=== PATIENT | female | born 1945 | race Caucasian/White ===

== ENCOUNTER → 2016-12-03 | Outpatient (CLI) | payer OTHER, MEDICARE | LOC: FIMAGING 13:49 | PROVIDERS: ATTEND Internal Medicine Nephrology | DX: N28.1 Cyst of kidney, acquired (principal); N18.3 Chronic kidney disease, stage 3 (moderate) ==

== ENCOUNTER → 2016-12-10 | Outpatient (CLI) | payer OTHER, MEDICARE | LOC: BHFA 10:45 | PROVIDERS: ATTEND Internal Medicine Cardiovascular Disease | DX: N28.9 Disorder of kidney and ureter, unspecified (principal) ==

== ENCOUNTER 2016-12-20 14:06 | Emergency (ER) | payer OTHER, MEDICARE ==
[2016-12-20 14:15] VITALS: TEMP 98.2
--- NOTE | 2016-12-20 14:48 | EDPHY ---
H & P Stated Complaint: R foot red/swollen, painful to walk on HPI/ROS: CHIEF COMPLAINT: Foot pain and swelling HISTORY OF PRESENT ILLNESS: Patient has several days duration of pain and swelling in the dorsum of the right midfoot. This was gradual onset. It has been constant duration. It is worsened over the past few days. It worsened after physical therapy and massage week. It may or may not of current after an injury going up her steps. She is not entirely sure. The warmth to the area has increased over the past 24-36 hours. She has no erythema beyond the dorsum of the foot. No edema or pain of the right calf. She has chronic knee pain, for which she is awaiting TKA later next month. She also has a history of chronic kidney disease, that she has not been on anti-inflammatories recently. She did take 1 last night after calling her blood bank calendar control clerk due to the pain and swelling. She did have some improvement with this. No other associated complaints or modifying factors. PRIOR ORTHO INJURIES: Osteoarthritis of the right knee ESTABLISHED ORTHOPEDIST: Dr. Salinas REVIEW OF SYSTEMS: Ten systems reviewed and are negative unless otherwise noted in the HPI EXAMINATION General Appearance: Alert, no distress Cardiovascular: Pulses normal throughout. Symmetric DP and PT pulses at 2+. Brisk cap refill Neurological: A&O, sensory symmetric, strength symmetric. Proprioception of the great toe is intact. Skin: Warm and dry, no rash. Mild erythema of the right foot over the dorsum. There is edema in this area. No erythema of the remainder of the extremity. No petechiae or purpura. Extremities: Edema and tenderness to palpation of the dorsal right midfoot. There is no crepitus. Range of motion of the ankle is intact but painful. She is neurovascular intact distal to this area of swelling. There is no bony tenderness of the ankle or ivey on the right lower extremity. There is no evidence of DVT by examination. Psychiatric: Mood and affect normal DIFFERENTIAL DIAGNOSES: Including but not limited to fracture, sprain, strain, cellulitis, osteomyelitis MDM: 2:40 p.m. Erythema, edema pain to the dorsum of the right midfoot. She is not sure if it is due to injury or physical therapy from this week. She has no erythema, edema or pain in the ipsilateral calf. No previous venous thrombolic event. Vital signs are stable. X-ray and laboratory studies are pending at this time. 3:30 p.m. No leukocytosis. There is mild elevation of inflammatory markers. Chemistry is pending. I have discussed the case with Dr. Tuttle, and he will evaluate the patient as well. 4:[address] Tuttle has evaluated the patient. He agrees that this is a mild cellulitis. Laboratory studies have been reviewed. X-rays unremarkable. The swelling does correlate with bone spurs on the x-ray. Plan for discharge home with oral antibiotics. Follow up with primary care physician. Return to the ER for recheck in 2 days if unable to see primary care physician. Return sooner for fever, worsening erythema, worsening swelling, worsening pain or involvement of the calf. Patient is comfortable with this plan. She will be discharged home in stable condition ED Precautions: Worsening pain. Erythema, edema, cyanosis, pallor, paresthesia or anesthesia. SUPERVISION: Patient was evaluated in conjunction with the supervising physician. Please see their note for details. Source: Patient, Family Exam Limitations: No limitations - Personal History Current Tetanus/Diphtheria Vaccine: Unsure Current Tetanus Diphtheria and Acellular Pertussis (TDAP): Unsure - Medical/Surgical History Hx Asthma: No Hx Chronic Respiratory Disease: No Hx Diabetes: No Hx Cardiac Disease: No Hx Renal Disease: No Hx Cirrhosis: No Hx Alcoholism: No Hx HIV/AIDS: No Hx Splenectomy or Spleen Trauma: No Other PMH: x2, bladder surgery, arthritis - Social History Smoking Status: Never smoked Constitutional: Initial Vital Signs Temperature (C) 98.2 F 12/20/16 14:13 Heart Rate 76 12/20/16 14:13 Respiratory Rate 15 12/20/16 14:13 Blood Pressure 164/83 H 12/20/16 14:13 O2 Sat (%) 96 12/20/16 14:13 O2 Delivery Mode Room Air Allergies/Adverse Reactions: amoxicillin trihydrate [From Augmentin] Allergy (Verified 12/20/16 14:12) erythromycin base [Erythromycin Base] Allergy (Verified 12/20/16 14:12) potassium clavulanate [From Augmentin] Allergy (Verified 12/20/16 14:12) Home Medications: Medication Instructions Recorded Ranitidine HCl [Zantac] 15 mg PO 10/08/12 Cephalexin [Keflex (*)] 500 mg PO TID #30 cap 12/20/16 Sulfamethox/Tmp 800/160 mg 1 tab PO BID 10 Days 12/20/16 [Bactrim Ds] Xanax 12/20/16 Medical Decision Making - Diagnostics Imaging Results: Imaging Impressions Foot X-Ray 12/20/16 14:35 Impression: Dorsal foot soft tissue swelling with underlying spurs. No evidence for underlying osteomyelitis. - Data Points Laboratory Results: Laboratory Results 12/20/16 15:00 12/20/16 15:00 12/20/16 12/20/16 15:00 15:00 WBC 8.29 10^3/uL 10^3/uL (3.80-9.50) RBC 3.59 10^6/uL L 10^6/uL (4.18-5.33) Hgb 10.7 g/dL L g/dL (12.6-16.3) Hct 33.6 % L % (38.0-47.0) MCV 93.6 fL fL (81.5-99.8) MCH 29.8 pg pg (27.9-34.1) MCHC 31.8 g/dL L g/dL (32.4-36.7) RDW 12.7 % % (11.5-15.2) Plt Count 188 10^3/uL 10^3/uL (150-400) MPV 10.7 fL fL (8.7-11.7) Neut % (Auto) 71.0 % % (39.3-74.2) Lymph % (Auto) 15.7 % % (15.0-45.0) [place] % (Auto) 11.5 % % (4.5-13.0) Eos % (Auto) 1.2 % % (0.6-7.6) Baso % (Auto) 0.4 % % (0.3-1.7) Nucleat RBC Rel Count 0.0 % % (0.0-0.2) Absolute Neuts (auto) 5.89 10^3/uL 10^3/uL (1.70-6.50) Absolute Lymphs (auto) 1.30 10^3/uL 10^3/uL (1.00-3.00) Absolute Monos (auto) 0.95 10^3/uL H 10^3/uL (0.30-0.80) Absolute Eos (auto) 0.10 10^3/uL 10^3/uL (0.03-0.40) Absolute Basos (auto) 0.03 10^3/uL 10^3/uL (0.02-0.10) Absolute Nucleated RBC 0.00 10^3/uL 10^3/uL (0-0.01) Immature Gran % 0.2 % % (0.0-1.1) Immature Gran # 0.02 10^3/uL 10^3/uL (0.00-0.10) ESR 12 MM/HR MM/HR (0-30) Sodium 144 mEq/L mEq/L (134-144) Potassium 4.5 mEq/L mEq/L (3.5-5.2) Chloride 111 mEq/L H mEq/L (97-110) Carbon Dioxide 23 mEq/l mEq/l (22-31) Anion Gap 10 mEq/L mEq/L (8-16) BUN 28 mg/dL H mg/dL (7-23) Creatinine 1.3 mg/dL H mg/dL (0.6-1.0) Estimated GFR 40 Glucose 99 mg/dL mg/dL (70-100) Calcium 10.5 mg/dL H mg/dL (8.5-10.4) C-Reactive Protein 18.9 mg/L H mg/L (<10.0) Departure - Departure Disposition: Home, Routine, Self-Care Clinical Impression: Cellulitis of foot without toes CKD (chronic kidney disease) Qualifiers: Chronic kidney disease stage: stage 1 Qualified Code(s): N18.1 - Chronic kidney disease, stage 1 Condition: Good Instructions: Cellulitis (ED) Additional Instructions: Bactrim and Keflex as discussed. Continued ice and elevate the foot. Follow up with primary care physician and blood bank calendar control clerk. Return to the ER in 2 days if unable to see primary care physician. Return sooner for worsening symptoms, fever, increasing erythema of the extremity. Referrals: Shruthi Xiong [Primary Care Provider] - As per Instructions Jesse Rojas MD [[facility] Primary Care Provider] - As per Instructions Prescriptions: Cephalexin [Keflex (*)] 500 mg PO TID #30 cap Sulfamethox/Tmp 800/160 mg [Bactrim Ds] 1 tab PO BID 10 Days
[2016-12-20 15:13] LABS: % IMMATURE GRANULYOCYTES 0.2 % (0.0-1.1); ABSOLUTE IMMATURE GRANULOCYTES 0.02 10^3/uL (0.00-0.10); ADD DIFF? NO; ADD MORPH? NO; ADD SCAN? NO; ATYPICAL LYMPHOCYTE FLAG 10 (0-99); FRAGMENT RBC FLAG 0 (0-99); HEMATOCRIT 33.6 % (38.0-47.0); HEMOGLOBIN 10.7 g/dL (12.6-16.3); LEFT SHIFT FLG 0 (0-99); LIPEMIA HEMOLYSIS FLAG 80 (0-99); MEAN CELL HEMOGLOBIN 29.8 pg (27.9-34.1); MEAN CELL HEMOGLOBIN CONCENTR. 31.8 g/dL (32.4-36.7); MEAN CELL VOLUME 93.6 fL (81.5-99.8); MEAN PLATELET VOLUME 10.7 fL (8.7-11.7); PLATELET CLUMPS FLAG 0 (0-99); PLATELET COUNT 188 10^3/uL (150-400); RED BLOOD CELL COUNT 3.59 10^6/uL (4.18-5.33); RED CELL DISTRIBUTION WIDTH 12.7 % (11.5-15.2)
[2016-12-20 15:38] LABS: SEDIMENTATION RATE 12 MM/HR (0-30)
[2016-12-20 15:39] LABS: ANION GAP 10 mEq/L (8-16); C-REACTIVE PROTEIN 18.9 mg/L (<10.0); CALCIUM 10.5 mg/dL (8.5-10.4); CARBON DIOXIDE 23 mEq/l (22-31); CHLORIDE 111 mEq/L (97-110); CREATININE 1.3 mg/dL (0.6-1.0); GLOMERULAR FILTRATION RATE 40; GLUCOSE 99 mg/dL (70-100); POTASSIUM 4.5 mEq/L (3.5-5.2); SODIUM 144 mEq/L (134-144)
[2016-12-20 16:36] VITALS: BP 142/107; PULSE 76; RESP 14; O2SAT 94
== END 2016-12-20 16:37 | disposition home or self-care (01) ==
DX: L03.115 Cellulitis of right lower limb (principal); N18.1 Chronic kidney disease, stage 1

== ENCOUNTER 2017-01-22 13:41 | Emergency (ER) | payer OTHER, MEDICARE ==
[2017-01-22 13:55] VITALS: TEMP 99.3
--- NOTE | 2017-01-22 14:45 | EDPHY ---
H & P Stated Complaint: pt. states 2 nocs ago stepped off curb, rt ft red,swelling, and pain Time Seen by Provider: 01/22/17 14:13 HPI/ROS: Chief Complaint: Right foot pain and redness HPI: 8-year-old woman presenting with 2 days of increasing right foot pain and redness. Patient states that began several hours after she stepped down off of a curb. She was seen by orthopedics yesterday for evaluation of her knee but had an x-ray at that time which was read as negative. Today patient has had some worsening pain and some redness in her midfoot. She had a similar episode in November was diagnosed with cellulitis. Patient took antibiotics for several days and improved. Of note patient does have a history of renal disease which has been attributed to NSAID use. 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 Does not have a history of recurrent joint pain in the past. Has had some redness. No fevers or chills. No redness streaking up her foot. No nausea or vomiting. Patient did take some tramadol but is highly intolerant of multiple medications. She is unable to take NSAIDs given her chronic renal disease. ROS: 10 point Review of Systems is negative except as noted in the HPI. PMH: Chronic kidney disease Social History: [No] smoking, [no] alcohol, [ no recreational drug use] Family History: [non-contributory] Physical Exam: General: Awake, alert, no acute distress Right foot: She has significant tenderness in the midfoot with palpation both dorsally and from the plantar aspect. She has no bony deformity. There is a very small amount of very light erythema on the dorsum of her 4th. There is significant tenderness medially over the midfoot with a is no erythema. It is mildly warm to the touch. There is no lymphadenitis or streaking. She has decreased range of motion foot secondary to pain. She has 2+ DP and PT pulses. Capillary refills less than 3 seconds. Sensations intact in all nerve distribution. Skin: Per foot exam - Medical/Surgical History Hx Asthma: No Hx Chronic Respiratory Disease: No Hx Diabetes: No Hx Cardiac Disease: No Hx Renal Disease: Yes Hx Cirrhosis: No Hx Alcoholism: No Hx HIV/AIDS: No Hx Splenectomy or Spleen Trauma: No Other PMH: Med hx-heart arrythmia,arthritis,echo cardiagram-11/2016-wnml,kidney disease-stage 3?,kidney stones. [id number],bladder surg - Social History Smoking Status: Never smoked Constitutional: Initial Vital Signs Temperature (C) 37.4 C 01/22/17 13:48 Heart Rate 93 01/22/17 13:48 Respiratory Rate 16 01/22/17 13:48 Blood Pressure 159/88 H 01/22/17 13:48 O2 Sat (%) 95 01/22/17 13:48 O2 Delivery Mode Room Air Allergies/Adverse Reactions: amoxicillin trihydrate [From Augmentin] Allergy (Verified 01/22/17 13:46) erythromycin base [Erythromycin Base] Allergy (Verified 01/22/17 13:46) potassium clavulanate [From Augmentin] Allergy (Verified 01/22/17 13:46) Home Medications: Medication Instructions Recorded Ranitidine HCl [Zantac] 15 mg PO 10/08/12 Xanax 12/20/16 Ondansetron Odt [Zofran Odt 4 mg 4 mg PO Q4 PRN #10 tab 01/22/17 (*)] Tramadol HCl 01/22/17 oxyCODONE/APAP 5/325 [Percocet 1 - 2 tab PO Q4H PRN #10 tab 01/22/17 5/325 (*)] predniSONE 60 mg PO DAILY #15 tab 01/22/17 Medical Decision Making - Diagnostics Imaging Results: Bony spurs, no obvious acute bony deformity Imaging: I viewed and interpreted images myself ED Course/Re-evaluation: Patient presenting with a 2nd presentation for pain in her right foot with some erythema. Prior diagnosis was for cellulitis. She has had pain for 2 days which has been worsening and then redness developed today. Pain is significant and is deep in nature in consistent with cellulitis. I suspect that given her history of renal disease and her multiple uric acid stones that this could be likely a gout exacerbation. There are no joints to aspirate fluid at this time. She cannot take acute NSAIDs and I am hesitant to put her on colchicine at this time given her impending renal tests. Will start her on prednisone. Will send her home with some pain medicine and crutches. She will follow up with primary care doc in 2-3 days. She was been cautioned that should the redness or streaking worsen, spread up her leg, fevers or chills, or any other symptoms she should remove return immediately to the emergency department for further evaluation. Departure - Departure Disposition: Home, Routine, Self-Care Clinical Impression: Gout Condition: Good Instructions: Gout (ED) Additional Instructions: Take your full course of steroids. If you continue to have pain you may take Percocet for the pain. May take Zofran for nausea vomiting. Follow up with your primary care physician in next 2-3 days for re-evaluation. If the redness continues to spread, streaks up her leg, he have worsening pain, or any other concerns return to the emergency depart for further evaluation. Referrals: Shruthi Xiong [Primary Care Provider] - As per Instructions Prescriptions: Ondansetron Odt [Zofran Odt 4 mg (*)] 4 mg PO Q4 PRN #10 tab PRN Reason: nausea oxyCODONE/APAP 5/325 [Percocet 5/325 (*)] 1 - 2 tab PO Q4H PRN #10 tab PRN Reason: Pain, Severe predniSONE 60 mg PO DAILY #15 tab
[2017-01-22 15:11] VITALS: BP 146/75; PULSE 74; RESP 18; O2SAT 97
== END 2017-01-22 15:10 | disposition home or self-care (01) ==
LOC: CED 13:41
DX: M10.9 Gout, unspecified (principal)
CPT/HCPCS: 73630-PO

== ENCOUNTER → 2017-06-15 | Outpatient (CLI) | payer OTHER, MEDICARE | LOC: FIMAGING 12:58 | DX: Z13.820 Encounter for screening for osteoporosis (principal); M85.80 Other specified disorders of bone density and structure, unspecified site ==

== ENCOUNTER → 2017-08-20 | Outpatient (CLI) | payer OTHER, MEDICARE | LOC: FIMAGING 13:45 | PROVIDERS: ATTEND Internal Medicine | DX: N63.10 Unspecified lump in the right breast, unspecified quadrant (principal) | CPT/HCPCS: 76641; G0204 ==

== ENCOUNTER → 2018-04-12 | Outpatient (CLI) | payer OTHER, MEDICARE | DX: Z51.11 Encounter for antineoplastic chemotherapy (principal) ==

== ENCOUNTER → 2018-08-19 | Outpatient (CLI) | payer OTHER, MEDICARE | LOC: BHFA 16:15 | PROVIDERS: ATTEND Internal Medicine Cardiovascular Disease | DX: Z51.11 Encounter for antineoplastic chemotherapy (principal) ==